=== PATIENT | female | born 1970 | race Caucasian/White ===

== ENCOUNTER → 2017-12-14 | Outpatient (CLI) | payer OTHER ==
[~2017-12-14] MED LIST: ALBU90OI INH; AMOX500 PO; AMPDEX5; AZIT250 PO; AZIT500 PO; BUPR100ER; BUPR100ER PO; BUPR150ER; CHOL10002 PO; CIPR250 PO; CLON.5 PO; CODGUAEL PO; CYCL10 PO; CYMBALTA; Citrate Of Mag300 ML PO; DIAZ5 PO; DULO60 PO; Dulcolax5 MG PO; ERGO400 PO; ESCI10; ESCI10 PO; ESCI20 PO; HYDACE5 PO; HYDGUAL120 PO; HYDHCL25 PO; LAMO100 PO; LEVFLO250 PO; Lamictal100 MG PO; MELA3 PO; MELO7.5 PO; OMEP20ER PO; OXYACE5T PO; PENVK500 PO; PHENA200 PO; PRED10 PO; PRED20 PO; PROM25 PO; RXHYDGUAS PO; RXONDA4ODT MM; SERT100 PO; TRAM50 PO; TRAZ150T57 PO; TRAZ50 PO; TRAZADONE; TRAZODONE; TRIA80TC TOP; Vistaril25 MG PO; Zovirax800 MG PO
[2017-12-14 16:48] LABS: U Amphetamine Screen Not Detected; U Barbituate Screen Not Detected; U Benzodiazapine Screen Not Detected; U Buprenorphine Screen Not Detected; U Cannabinoids Screen Not Detected; U Cocaine Screen Not Detected; U Methadone Screen Not Detected; U Methamphetamine Screen Not Detected; U Opiates Screen Not Detected; U Oxycodone Screen Not Detected; U Phencyclidine Screen Not Detected; U Propoxyphene Screen Not Detected
== END ==
LOC: LAB 15:10 → LAB SHORT 15:10
PROVIDERS: Psychiatry & Neurology Psychiatry
DX: Z79.899 Other long term (current) drug therapy (principal)

== ENCOUNTER → 2018-04-17 | Outpatient (CLI) | payer OTHER ==
[2018-04-17 17:07] LABS: U Amphetamine Screen DETECTED; U Barbituate Screen Not Detected; U Benzodiazapine Screen Not Detected; U Buprenorphine Screen Not Detected; U Cannabinoids Screen Not Detected; U Cocaine Screen Not Detected; U Methadone Screen Not Detected; U Methamphetamine Screen Not Detected; U Opiates Screen Not Detected; U Oxycodone Screen Not Detected; U Phencyclidine Screen Not Detected; U Propoxyphene Screen Not Detected
== END ==
LOC: LAB 15:15 → LAB SHORT 15:15
PROVIDERS: Psychiatry & Neurology Psychiatry
DX: Z51.81 Encounter for therapeutic drug level monitoring (principal); Z79.899 Other long term (current) drug therapy

== ENCOUNTER → 2019-03-05 | Outpatient (CLI) | payer OTHER ==
[2019-03-05 18:50] LABS: U Amphetamine Screen DETECTED; U Barbituate Screen Not Detected; U Benzodiazapine Screen Not Detected; U Buprenorphine Screen Not Detected; U Cannabinoids Screen Not Detected; U Cocaine Screen Not Detected; U Methadone Screen Not Detected; U Methamphetamine Screen Not Detected; U Opiates Screen Not Detected; U Oxycodone Screen Not Detected; U Phencyclidine Screen Not Detected; U Propoxyphene Screen Not Detected
== END ==
LOC: LAB 18:27 → LAB SHORT 18:27
PROVIDERS: Psychiatry & Neurology Psychiatry
DX: Z51.81 Encounter for therapeutic drug level monitoring (principal); Z79.899 Other long term (current) drug therapy

== ENCOUNTER 2020-11-05 00:42 | Emergency (ER) | payer OTHER ==
[~2020-11-05] VITALS: Ht 167.6 cm; Wt 58.5 kg
[2020-11-05] MEDS ORDERED: ESCI20 PO (01:00)
[2020-11-05] MEDS ORDERED: CEPH500 PO (05:06)
[2020-11-05] MEDS ORDERED: Keflex500 MG PO (05:21)
== END 2020-11-05 05:43 | disposition home or self-care (01) ==
LOC: ER 00:42
DX: S61.512A Laceration without foreign body of left wrist, initial encounter (principal); F17.210 Nicotine dependence, cigarettes, uncomplicated; Z79.899 Other long term (current) drug therapy; W26.0XXA Contact with knife, initial encounter
CPT/HCPCS: 12002; 73110; 90714; 99283-25; A9270-GY; J0690

== ENCOUNTER 2023-04-21 19:27 | Emergency (ER) | payer OTHER ==
[~2023-04-21] VITALS: Ht 165.1 cm; Wt 65.8 kg
[~2023-04-21 19:27] MED LIST changes: +CEPH500 PO; +Keflex500 MG PO
[2023-04-21] MEDS ORDERED: OXYC5 PO (21:37)
[2023-04-21 22:00] VITALS: BP 133/83
[2023-04-21] MEDS ORDERED: CRUTCH2 XX (22:04)
== END 2023-04-21 22:21 | disposition home or self-care (01) ==
LOC: ER 19:27
DX: S82.852A Displaced trimalleolar fracture of left lower leg, initial encounter for closed fracture (principal); F17.210 Nicotine dependence, cigarettes, uncomplicated; F98.8 Other specified behavioral and emotional disorders with onset usually occurring in childhood and adolescence; F32.A Depression, unspecified; W01.0XXA Fall on same level from slipping, tripping and stumbling without subsequent striking against object, initial encounter; Z88.8 Allergy status to other drugs, medicaments and biological substances
CPT/HCPCS: 27818; 29515; 73610; 96361-59; 96374-59; 96375-59; 99152; 99283-25; A9270; J1170; J2704; J7030

== ENCOUNTER 2023-05-02 10:30 | Day surgery (SDC) | payer OTHER ==
[~2023-05-02] VITALS: Ht 165.1 cm; Wt 65.7 kg
[~2023-05-02 10:30] MED LIST changes: +CRUTCH2 XX; +OXYC5 PO
--- NOTE | 2023-05-02 12:42 | NUR ---
05/02/23 1242 Loli Rubalcava FRACTURE BLISTERS ON MEDIAL SIDE AND POSTERIOR ASPECT OF THE LEFT ANKLE NOTED BY RN AND DR SHORE DURING STERILE PREP.
[2023-05-02 15:46] VITALS: BP 134/79
== END 2023-05-02 16:38 | disposition home or self-care (01) ==
LOC: ORSCSDS 10:30
PROVIDERS: Podiatrist Foot & Ankle Surgery
PROC: 0QSH04Z Reposition Left Tibia with Internal Fixation Device, Open Approach (ICD-10-PCS; principal; 2023-05-02 12:00)
PROC: 0QSK04Z Reposition Left Fibula with Internal Fixation Device, Open Approach (ICD-10-PCS; principal; 2023-05-02 12:00)
DX: S82.852A Displaced trimalleolar fracture of left lower leg, initial encounter for closed fracture (principal); F32.A Depression, unspecified; F17.210 Nicotine dependence, cigarettes, uncomplicated; Z79.899 Other long term (current) drug therapy
CPT/HCPCS: A9270; C1713; C1769; J0171; J0690; J1100; J1885; J2250; J2405; J2704; J3010; J7120